=== PATIENT | female | born 2000 | race African-American/Black ===

== ENCOUNTER 2020-08-19 22:07 | Emergency (ER) | payer OTHER ==
[~2020-08-19] VITALS: Ht 157.5 cm; Wt 53.5 kg
[2020-08-19 22:18] VITALS: BP 129/85
--- NOTE | 2020-08-19 22:18 | NUR ---
TO BED AMBULATORY
--- NOTE | 2020-08-19 22:50 | NUR ---
LAB AT BEDSIDE.
[2020-08-19 22:59] LABS: BASOPHILS % (AUTO) 0.7 % (0.0-2.0); EOSINOPHILS # (AUTO) 0.1 K/uL (0-0.4); EOSINOPHILS % (AUTO) 0.8 % (0.0-4.0); HEMATOCRIT 39.6 % (36-48); LYMPHOCYTES # (AUTO) 1.1 K/uL (2.5-16.5); LYMPHOCYTES % (AUTO) 14.9 % (20.5-51.1); MEAN CORPUSCULAR HEMOGLOBIN 29 pg (27-31); MEAN CORPUSCULAR HGB CONC 33 g/dL (33-37); MEAN CORPUSCULAR VOLUME 88.5 fL (80-94); MONOCYTES # (AUTO) 0.4 K/uL (0.8-1.0); MONOCYTES % (AUTO) 5.6 % (1.7-9.3); NEUTROPHILS # (AUTO) 5.7 K/uL (1.8-7.7); PLATELET COUNT (AUTO) 319 K/uL (140-450); RED BLOOD CELL COUNT(AUTO) 4.48 MIL/uL (4.20-5.40); RED CELL DISTRIBUTION WIDTH 13.4 % (11.6-13.7); WHITE BLOOD COUNT (AUTO) 7.2 K/uL (4.8-10.8)
[2020-08-19 23:37] VITALS: BP 117/72
--- NOTE | 2020-08-19 23:37 | NUR ---
19 y/o female presented to ED c/o nausea & vomitting starting today. Pt states she was out drinking mimosa today and [place]. Pt states she has sunburn on her back, observed redness w/ no blistering noted. Pt states she has vomitted about 10 times today. Pt also c/o of headache , throbbing 8/10. 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 VSS. no acute distress noted. pmh: denies NKA
--- NOTE | 2020-08-19 23:37 | NUR ---
ERMD AT BEDSIDE.
--- NOTE | 2020-08-19 23:38 | NUR ---
PT STATES UNABLE TO PROVIDE URINE SAMPLE AT THIS TIME. PT PROVIDED W/ WATER FOR ENCOURAGEMENT OF URINE SAMPLE.
[2020-08-19] MEDS ORDERED: IBUPROFEN 600 MG TAB PO ONE (23:40)
[2020-08-19] MEDS ORDERED: ONDANSETRON 4 MG ODT PO ONE (23:40)
[2020-08-19 23:41] LABS: ALBUMIN 4.4 g/dL (3.4-5.0); CARBON DIOXIDE 28.1 mmol/L (21-32); CREATININE 0.8 mg/dL (0.6-1.3); POTASSIUM 4.1 mmol/L (3.5-5.1); TOTAL BILIRUBIN 0.4 mg/dL (0.0-1.0)
--- NOTE | 2020-08-19 23:54 | NUR ---
pt ambulated to restroom w/ steady gait.
[2020-08-20] MEDS ORDERED: ONDA4TAB PO (00:19)
== END 2020-08-20 00:33 | disposition home or self-care (01) ==
LOC: MED 22:07
DX: R11.2 Nausea with vomiting, unspecified (principal); R51.9 Headache, unspecified; X32.XXXA Exposure to sunlight, initial encounter; Y93.89 Activity, other specified; Y92.89 Other specified places as the place of occurrence of the external cause; Y99.8 Other external cause status
CPT/HCPCS: 36415; 80053; 81002; 81025; 83690; 85025; 99283; Q0162